=== PATIENT | female | born 1995 | race African-American/Black ===

== ENCOUNTER 2017-07-25 17:25 | Emergency (ER) | payer BC, MEDICAID ==
[~2017-07-25] VITALS: Ht 154.9 cm; Wt 54.4 kg
[2017-07-25] MEDS ORDERED: CORTISPORIN EAR10 ML BOTH EARS ×2 (17:35→18:06)
[2017-07-25] MEDS ORDERED: WELLBUTRIN SR100 MG ORAL (17:35)
[2017-07-25] MEDS ORDERED: ATIVAN1 MG ORAL (17:35)
[2017-07-25] MEDS ORDERED: ACETAMINOPHEN-1 EAC1 ORAL (18:06)
[2017-07-25] MEDS ORDERED: Norco 5mg/325mg tab ORAL ONE (18:15)
[2017-07-25 18:20] VITALS: BP 124/79
--- NOTE | 2017-07-25 18:25 | Emergency Room Report ---
History of Present Illness General Chief Complaint: Earache Source: Patient Present Illness HPI The patient is a 22-year-old female presenting for ear pain for the past 2 days. Described as a 9/10 dull ache. Started with the right ear but is now the left ear as well. Pain does not radiate. Worse with jaw movement and touch. She has tried Tylenol at home which has not been helping. She denies other symptoms including nausea, vomiting, fever, chills, cough Allergies: Coded Allergies: No Known Allergies (Unverified , 07/25/17) Patient History Past Medical History: see triage record Pertinent Family History: none Last Menstrual Period: Current. Reviewed Nursing Documentation: PMH: Agreed, PSxH: Agreed Nursing Documentation-PMH Past Medical History: No History, Except For Review of Systems All Other Systems: negative except mentioned in HPI Physical Exam Vital Signs Date Time Temp Pulse Resp B/P (MAP) Pulse Ox O2 Delivery O2 Flow Rate FiO2 07/25/17 17:30 100.9 109 18 124/79 99 Room Air Sp02 EP Interpretation: reviewed, normal General Appearance: no apparent distress, alert, GCS 15, non-toxic Head: normocephalic, atraumatic Eyes: bilateral eye normal inspection, bilateral eye PERRL ENT: normal pharynx, normal voice, uvula midline, other - EAC erythema and white exudate Neck: full range of motion, supple/symm/no masses Respiratory: chest non-tender, lungs clear, normal breath sounds, speaking full sentences Musculoskeletal: back normal, gait/station normal, normal range of motion, non- tender Neurologic: alert, oriented x3, responsive, motor strength/tone normal, sensory intact, speech normal Psychiatric: judgement/insight normal, memory normal, mood/affect normal, no suicidal/homicidal ideation Skin: normal color, no rash, warm/dry, well hydrated Lymphatic: adenopathy Medical Decision Making PA Attestation Dr. Dykes is my supervising physician. Patient management was discussed with my supervising physician Diagnostic Impression: Primary Impression: Otitis externa of both ears Qualified Codes: H60.503 - Unspecified acute noninfective otitis externa, bilateral ER Course The patient is a 22-year-old female presenting for ear pain for the past 2 days Differential diagnosis include but not limited to otitis externa, otitis media, mastoiditis, sinusitis, pharyngitis Physical exam: Vitals within normal limits. No apparent distress. HEENT: Bilat ear external auditory canal is erythematous and edematous. White discharge is noted. Tympanic membrane is intact. No bulging. There is cervical lymphadenopathy. Otherwise exam is unremarkable The patient will be discharged home with a prescription for Cortisporin and Pain medication. ER precautions given Last Vital Signs Date Time Temp Pulse Resp B/P (MAP) Pulse Ox O2 Delivery O2 Flow Rate FiO2 07/25/17 17:30 100.9 109 18 124/79 99 Room Air Status: improved Disposition: HOME, SELF-CARE Condition: Improved Scripts Acetaminophen With Codeine (T#3) (TYLENOL #3 TAB*) Y Tab 1 TAB ORAL Q6HR Y for For Pain, #10 TAB Prov: WHITNEY PALOMINO 07/25/17 Neomycin/Polymyxin B Sulf/Hc* (CORTISPORIN EAR SOLUTION*) 10 Ml Solution 4 DROP BOTH EARS QID, #10 ML 0 Refills Prov: WHITNEY PALOMINO 07/25/17 Patient Instructions: Otitis Externa Additional Instructions: I discussed my findings with the patient. All questions and concerns have been answered. Treatment and medication compliance have been addressed. I advised the patient that they need to follow up with PMD in 3-5 days. Return to ED if symptoms worsen, new symptoms arise, or if needed for any reason. Patient verbalized understanding of discharge instructions. WHITNEY PALOMINO Jul 25, 2017 18:25
== END 2017-07-25 18:20 | disposition home or self-care (01) ==
LOC: EMR 17:38
DX: H60.503 Unspecified acute noninfective otitis externa, bilateral (principal)
CPT/HCPCS: 99283